=== PATIENT | female | born 1985 | race Caucasian/White ===

== ENCOUNTER 2021-11-04 12:00 | Inpatient (IN) | payer BC ==
--- NOTE | 2021-11-04 21:44 | P.HPOB ---
History of Present Illness H&P Date: 11/04/21 Chief Complaint: Breech presentation This is a 36 y.o. female, 1, para 0, with an estimated date of confinement of 11/09/2021, estimated gestational age of 39-3/7 weeks, who presents for primary low transverse section due to breech presentation. She has been followed by [facility] due to advanced maternal age. She has a velamentous/marginal cord insertion. She has been doing surveillance. She does complain of irregular contractions and leg swelling. labs: Hepatitis B surface antigen-neg RPR-NR Rubella-immune Blood type-A+ Antibody screen-ng HIV-NR Hemoglobin-13.2 [id number] Toxoplasma-neg Random glucose-78 1 hr. GTT-97 GBS-neg OB Hx: Commercial Lines Manager Hx: No hx of STDs Social Hx: . Works as a teacher. Review of Systems Constitutional: Denies chills, Denies fever Eyes: denies blurred vision, denies pain Ears, nose, mouth and throat: Denies headache, Denies sore throat Cardiovascular: Denies chest pain, Denies shortness of breath Respiratory: Denies cough Gastrointestinal: Reports abdominal pain (irregular contractions) Genitourinary: Reports pelvic pain, Reports Musculoskeletal: Reports low back pain Musculoskeletal: bilateral: ankle swelling, foot swelling Integumentary: Denies pruritus, Denies rash Neurological: Denies numbness, Denies weakness Psychiatric: Denies anxiety, Denies depression Past Medical History Past Medical History: No Reported History Additional Past Surgical History / Comment(s): [place] teeth, ganglion cys tectomy-wrist Past Psychological History: No Psychological Hx Reported Smoking Status: Never smoker Past Alcohol Use History: None Reported Past Drug Use History: None Reported - Past Family History Father Family Medical History: COPD Medications and Allergies Home Medications Medication Instructions Recorded Confirmed Type Pnv,Calcium 72/Iron/Folic Acid 11/04/21 History [ Plus Tablet] Allergies Allergy/AdvReac Type Severity Reaction Status Date / Time No Known Allergies Allergy Verified 11/04/21 21:34 Exam Osteopathic Statement: *. No significant issues noted on an osteopathic structural exam other than those noted in the History and Physical/Consult. HEENT: within normal limits Heart: regular rate and rhythm Lungs: clear to auscultation bilaterally Abdomen: Cervix: 1 cm/50%/-3 heart tones: 140's by doppler Extremities: negative Ibis's, 2+ pitting edema Assessment and Plan (1) 39 weeks gestation of Status: Acute Code(s): Z3A.39 - 39 WEEKS GESTATION OF SNOMED Code(s): 99710060 (2) Breech presentation Status: Acute Code(s): O32.1XX0 - MATERNAL CARE FOR BREECH PRESENTATION, UNSP SNOMED Code(s): 6247014 (3) Advanced maternal age (AMA) in Status: Acute Code(s): [id number] - SNOMED Code(s): 868586111 Plan: Admission for primary section. I have discussed the risks, benefits, and alternative therapies for the above- mentioned procedure and for both sedation/anesthesia as well as necessary blood products administration, if indicated, as they pertain to this patient. The patient has indicated her understanding and acceptance of the risks and procedures discussed.
[2021-11-05] MEDS ORDERED: CITRIC ACID-SODIUM CITRATE 15 ML CUP PO ONE (06:25)
[2021-11-05] MEDS ORDERED: LACTATED RINGERS 1,000 ML IV ONE (06:25)
[2021-11-05] MEDS ORDERED: LIDOCAINE 1% (10MG/ML) FOR IV START INTRADERMA PRN (06:25)
[2021-11-05 07:07] LABS: Basophils % (A) 0 %; Eosinophils # (A) 0.1 k/uL (0-0.7); Eosinophils % (A) 1 %; HCT 30.9 % (34.0-46.0); HGB 10.5 gm/dL (11.4-16.0); Hypochromasia Slight; Lymphocytes # (A) 1.3 k/uL (1.0-4.8); Lymphocytes % (A) 15 %; MCH 29.9 pg (25.0-35.0); MCHC 33.9 g/dL (31.0-37.0); MCV 88.3 fL (80.0-100.0); Mean Platelet Volume 7.3; Monocytes # (A) 0.6 k/uL (0-1.0); Monocytes % (A) 7 %; Neutrophils # (A) 6.6 k/uL (1.3-7.7); Neutrophils % (A) 75 %; Platelet Count 275 k/uL (150-450); Poikilocytosis Slight; RBC 3.51 m/uL (3.80-5.40); RDW 14.1 % (11.5-15.5); WBC 8.9 k/uL (3.8-10.6)
[2021-11-05] MEDS: LACTATED RINGERS 1,000 ML IV SCH (07:40)
[2021-11-05] MEDS ORDERED: fentaNYL (PF) 50 MCG/ML 2 ML AMP ONE (07:51)
[2021-11-05] MEDS ORDERED: KETOROLAC 15 MG/ML 1 ML VIAL ONE (07:51)
[2021-11-05] MEDS ORDERED: MORPHINE SULFATE (PF) 0.3 MG/0.3 ML SYR ONE (07:51)
[2021-11-05] MEDS ORDERED: OXYTOCIN 30 UNITS/500 ML NS BAG IV ONE (07:51)
[2021-11-05] MEDS ORDERED: ONDANSETRON 4 MG/2 ML VIAL ONE (07:51)
[2021-11-05] MEDS ORDERED: NALBUPHINE 10 MG/ML (1 ML AMP) ONE (07:51)
--- NOTE | 2021-11-05 08:43 | P.OP ---
Date of Procedure: 11/05/21 Preoperative Diagnosis: 1. Intrauterine at 39-3/7 weeks. 2. Breech presentation. 3. Advanced maternal age. Postoperative Diagnosis: Same Procedure(s) Performed: Primary low transverse section Anesthesia: spinal (Duramorph) Surgeon: Marlena Rajput Organizational Development Consultant #1: Enrrique Bucio Estimated Blood Loss (ml): 600 Pathology: other (Placenta) Condition: stable Disposition: floor Indications for Procedure: This is a 36-year-old female 1 para 0 at 39-3/7 weeks who presents for scheduled primary section due to breech presentation. Please see history and physical for details of patient's admission. I have discussed the risks, benefits, and alternative therapies for the above- mentioned procedure and for both sedation/anesthesia as well as necessary blood products administration, if indicated, as they pertain to this patient. The patient has indicated her understanding and acceptance of the risks and procedures discussed. Operative Findings: A viable male is noted in a compound breech presentation with the right leg footling in the left leg robert. Apgars were 8 at 1 minute and 9 at 5 minutes and infant weight was 9 lbs. 10 oz. Normal uterus tubes and ovaries are noted. Description of Procedure: The patient is taken to the operating room where she is placed in the dorsal supine position with leftward tilt after spinal Duramorph anesthesia is given. She is prepped and draped in the normal sterile fashion. Skin was tested and found to be adequately anesthetized. A Pfannenstiel skin incision was made with a scalpel. A second knife was used to carry the incision down to the underlying layer of fascia. The fascia was nicked in the midline with a scalpel and then extended laterally bilaterally with Jiménez scissors. The anterior lip of the fascia was grasped with 2 April clamps and then dissected off the underlying rectus muscle in the midline with Jiménez scissors. The inferior aspect of the fascial incision was grasped with 2 April clamps and dissected off the underlying rectus muscle and the midline with Jiménez scissors. Next the peritoneum layer was tented up with 2 hemostats and then entered sharply with the scalpel. The incision is extended superiorly and inferiorly with Metzenbaum scissors. Next a DeLee retractor is placed. The vesicouterine peritoneum is entered sharply with Metzenbaum scissors and extended laterally bilaterally with Metzenbaum scissors and then the bladder flap is pushed inferiorly. The lower uterine segment is incised in transverse fashion with the scalpel and then bluntly entered with a hemostat. Clear fluid is noted. The incision was then extended laterally bilaterally with 2 fingers. The buttocks is palpated and the right foot is palpated and brought through the incision. I was able to bring a hand up higher into the uterus to palpate the left foot which was abducted and up near the head. The buttocks was delivered through the incision and then the left leg was delivered followed by the trunk and each arm in a flexed position and then the head in a flexed position. Nose and mouth are bulb suctioned. Cord is clamped and cut. Infant is taken to warmer by nursing s taff. Uterine fundus is gently massaged and placenta is delivered manually. Uterus is exteriorized and cleared of all clots and debris. Uterine incision is closed with 0 Vicryl suture in a running locked fashion. A second layer of 0 Vicryl suture is used in a running fashion for hemostasis. Once adequate hemostasis as assured, the vesicouterine peritoneum is reapproximated with 2-0 Vicryl suture in a running fashion. Posterior cul-de-sac is suctioned of all clots and debris. Uterus is returned to the abdomen. Incision is noted to be hemostatic. Peritoneal layer is closed with 0 Vicryl suture in a running fashion. Muscle layer is reapproximated with 0 Vicryl suture in interrupted fashion. Fascia layer is then closed with 0 PDS suture with 2 sutures meeting in the midline and the knots buried in either side and in the midline. The subcutaneous tissue was then closed with 2-0 Vicryl suture. Skin layer was then closed with vega. All sponge and needle counts are correct. The patient is taken to recovery room in stable condition.
[2021-11-05] MEDS ORDERED: diphenhydrAMINE 25 MG CAP PO PRN (15:09)
[2021-11-05] MEDS ORDERED: diphenhydrAMINE 50 MG CAP PO PRN (15:09)
[2021-11-05] MEDS ORDERED: METOCLOPRAMIDE 5 MG/ML 2 ML VIAL IVP PRN (15:09)
[2021-11-05] MEDS ORDERED: ZOLPIDEM 5 MG TAB PO PRN (15:09)
[2021-11-05] MEDS ORDERED: ONDANSETRON 4 MG/2 ML VIAL IVP PRN (15:09)
[2021-11-05] MEDS ORDERED: NALOXONE 0.4 MG/ML 1 ML VIAL IV PRN (15:09)
[2021-11-05] MEDS ORDERED: diphenhydrAMINE 50 MG/ML 1 ML VIAL IVP PRN ×2 (15:09)
[2021-11-05] MEDS: ACETAMINOPHEN TAB 500 MG TAB PO SCH (15:38)
[2021-11-05] MEDS: KETOROLAC 15 MG/ML 1 ML VIAL IVP SCH (21:50)
[2021-11-06] MEDS: SENNOSIDES-DOCUSATE SODIUM 1 EACH TAB PO SCH ×3 (00:15→19:51)
[2021-11-06] MEDS: LACTATED RINGERS 1,000 ML IV SCH (01:41)
[2021-11-06] MEDS: KETOROLAC 15 MG/ML 1 ML VIAL IVP SCH ×2 (01:41→04:05)
[2021-11-06] MEDS: ACETAMINOPHEN TAB 500 MG TAB PO SCH ×3 (05:11→15:57)
[2021-11-06 07:44] LABS: Basophils % (A) 0 %; Eosinophils % (A) 0 %; HCT 27.3 % (34.0-46.0); HGB 9.2 gm/dL (11.4-16.0); Hypochromasia Slight; Lymphocytes % (A) 8 %; MCH 29.8 pg (25.0-35.0); MCHC 33.8 g/dL (31.0-37.0); MCV 88.2 fL (80.0-100.0); Mean Platelet Volume 7.6; Monocytes # (A) 0.4 k/uL (0-1.0); Monocytes % (A) 4 %; Neutrophils # (A) 10.3 k/uL (1.3-7.7); Neutrophils % (A) 86 %; Platelet Count 243 k/uL (150-450); RBC 3.09 m/uL (3.80-5.40); RDW 14.1 % (11.5-15.5); WBC 11.9 k/uL (3.8-10.6)
--- NOTE | 2021-11-06 08:55 | P.PNOBGPC ---
Subjective - Subjective Principal diagnosis: Status post primary low transverse postop day #1 Interval history: Patient seen and examined. Denies nausea, vomiting, chest pain, shortness of breath or calf pain. Patient reports: Reports appetite normal, Reports voiding normally, Reports pain well controlled, Reports ambulating normally : doing well Objective - Vital Signs Latest vital signs: Vital Signs Temp Pulse Resp BP Pulse Ox 11/06/21 08:00 98.1 F 108 H 16 123/78 11/06/21 04:00 98.1 F 80 18 136/74 99 11/06/21 00:00 98.7 F 106 H 16 113/67 96 11/05/21 20:00 98.5 F 110 H 16 110/74 96 11/05/21 16:00 98.5 F 98 12 126/80 90 L 11/05/21 12:00 97.5 F L 84 12 146/78 97 11/05/21 11:00 97.4 F L 88 16 127/61 97 11/05/21 10:16 97.7 F 93 17 121/67 97 11/05/21 09:46 113 H 17 124/71 96 11/05/21 09:31 88 17 131/62 97 11/05/21 09:16 80 17 131/64 97 11/05/21 09:01 108 H 17 140/76 98 Intake and Output 11/05/21 11/06/21 11/06/21 22:59 06:59 14:59 Intake Total 960 480 Output Total 655 Balance 305 480 Intake: Oral 960 480 Output: Urine 655 Uretheral (Alejandro) 355 Other: # Voids 1 1 # Bowel Movements 600 - Exam Lungs: bilateral: normal Chest: Normal S1, Normal S2 Extremities: Present: normal Abdomen: Present: normal appearance, soft. Absent: distention, tenderness Incision: Present: normal, dry, intact Uterus: Present: normal, firm - Labs Labs: Abnormal Lab Results - Last 24 Hours (Table) 11/06/21 Range/Units 07:23 WBC 11.9 H (3.8-10.6) k/uL RBC 3.09 L (3.80-5.40) m/uL Hgb 9.2 L (11.4-16.0) gm/dL Hct 27.3 L (34.0-46.0) % Neutrophils # 10.3 H (1.3-7.7) k/uL Assessment and Plan (1) Status post primary low transverse section Current Visit: Yes Status: Acute Code(s): Z98.891 - HISTORY OF UTERINE SCAR FROM PREVIOUS SURGERY SNOMED Code(s): 993376449 Plan: 1. Increase ambulation 2. securities consultant 3. By mouth pain medication
[2021-11-06] MEDS: IBUPROFEN 600 MG TAB PO SCH ×2 (13:34→19:52)
--- NOTE | 2021-11-06 21:01 | P.PN ---
Progress Note - Text 11/06/21 182 36-year-old female status post with spinal Duramorph. Patient seen and evaluated for postop pain control she has a VAS of 4 with complaints of mild pruritus which is was NO complains of nausea or vomiting. Patient doing well
[2021-11-06 23:24] VITALS: TEMP 98.2
[2021-11-07] MEDS: ACETAMINOPHEN TAB 500 MG TAB PO SCH ×3 (05:10→15:06)
[2021-11-07] MEDS: KETOROLAC 15 MG/ML 1 ML VIAL IVP SCH (05:39)
[2021-11-07] MEDS: SENNOSIDES-DOCUSATE SODIUM 1 EACH TAB PO SCH (08:01)
[2021-11-07] MEDS: IBUPROFEN 600 MG TAB PO SCH (08:42)
[2021-11-07 08:51] VITALS: BP 136/76; PULSE 84; RESP 16
--- NOTE | 2021-11-07 09:33 | P.DS ---
Providers Date of admission: 11/05/21 06:05 Expected date of discharge: 11/07/21 Attending physician: Marlena Rajput Primary care physician: Stated None - Discharge Diagnosis(es) (1) Status post primary low transverse section Current Visit: Yes Status: Acute Hospital Course: Patient presented for a primary low transverse due to breech pre sentation. Patient underwent this procedure without complication. Postoperative course was uneventful. She denies nausea, vomiting, chest pain, shortness of breath or any calf pain. Incision is clean, dry, intact. Patient will be discharged home day #2 in stable condition to follow-up with Dr. Rajput in one week. Plan - Discharge Summary New Discharge Prescriptions: New Ibuprofen [Motrin] 600 mg PO Q6HR #40 tab oxyCODONE HCL [OxyIR] 5 mg PO Q6HR PRN #12 tab PRN Reason: Pain No Action Aspirin [Adult Low Dose Aspirin EC] 81 mg PO DAILY Pnv,Calcium 72/Iron/Folic Acid [ Plus Tablet] 1 tab PO DAILY Famotidine 10 mg PO BID Omeprazole 20 mg PO DAILY Discharge Medication List Pnv,Calcium 72/Iron/Folic Acid [ Plus Tablet] 1 tab PO DAILY 11/04/21 [History] Aspirin [Adult Low Dose Aspirin EC] 81 mg PO DAILY 11/05/21 [History] Famotidine 10 mg PO BID 11/05/21 [History] Omeprazole 20 mg PO DAILY 11/05/21 [History] Ibuprofen [Motrin] 600 mg PO Q6HR #40 tab 11/07/21 [Rx] oxyCODONE HCL [OxyIR] 5 mg PO Q6HR PRN #12 tab 11/07/21 [Rx] Follow up Appointment(s)/Referral(s): Marlena Rajput DO [Doctor of Osteopathic Medicine] - 12/15/21 11:30 am (Post Op 11-18-2021 at 1:30pm) Discharge Disposition: HOME SELF-CARE
== END 2021-11-07 15:30 | disposition home or self-care (01) | DRG 788 ==
LOC: 4FBP 11-05 06:05
PROVIDERS: ADMIT Obstetrics & Gynecology; ATTEND Obstetrics & Gynecology
PROC: 10D00Z1 Extraction of Products of Conception, Low, Open Approach (ICD-10-PCS; principal; 2021-11-05 08:00)
DX: O32.1XX0 Maternal care for breech presentation, not applicable or unspecified (principal); O43.193 Other malformation of placenta, third trimester; Z37.0 Single live birth; Z3A.39 39 weeks gestation of pregnancy; Z82.5 Family history of asthma and other chronic lower respiratory diseases
CPT/HCPCS: 85025; 86850; 86900; 86901; 88307

== ENCOUNTER → 2023-01-31 | Outpatient (CLI) | payer BC ==
--- NOTE | 2023-02-01 20:09 | MM ---
Reason for Exam: Screening (asymptomatic). Baseline mammogram. Patient History: Menarche at age 14. First Full-Term at age 35. Late child-bearing (after 30). Premenopausal. Patient has history of breast feeding. Last menstrual period: 01/01/2023 Risk Values: Tracey 5 year model risk: 0.5%. NCI Lifetime model risk: 12.6%. Prior Study Comparison: Patient's first Mammogram. Tissue Density: The breast tissue is heterogeneously dense. This may lower the sensitivity of mammography. Findings: Analyzed By CAD. No significant mass, suspicious microcalcification, or other discrete abnormality is seen. No persisting abnormality on 3-D images. Overall Assessment: Negative, BI-RAD 1 Management: Screening Mammogram of both breasts at age 40. Further clinical management of patient's right breast pain. Patient should continue monthly self-breast exams. A clinical breast exam by your physician is recommended on an annual basis. This exam should not preclude additional follow-up of suspicious palpable abnormalities. Note on Tracey scores and lifetime risk: 1. A Tracey score greater than 3% is considered moderate risk. If this is the case, consider specialist referral to assess eligibility for a risk reducing agent. 2. If overall lifetime risk for the development of breast cancer is 20% or higher, the patient may qualify for future screening with alternating mammogram and breast MRI. Electronically signed and approved by: Stanford Pabon M.D. Radiologist
== END | disposition home or self-care (01) ==
LOC: RADMAMWWP 10:52
PROVIDERS: ATTEND Obstetrics & Gynecology
DX: Z12.31 Encounter for screening mammogram for malignant neoplasm of breast (principal)
CPT/HCPCS: 77063; 77067